=== PATIENT | male | born 1965 | race American Indian/Alaskan Native ===

== ENCOUNTER 2018-03-25 21:17 | Inpatient (IN) | payer MEDICARE ==
[2018-03-25] MEDS ORDERED: ASPIRIN PO ONE (22:15)
[2018-03-25 22:57] LABS: Hematocrit 41.7 % (35.5-45.6); Hemoglobin 14.6 gm/dl (11.8-15.2); Mean Corpuscular HGB Conc 35 % (32-34); Mean Corpuscular Volume 86 fl (84-94); Platelet Count 232 K/mm3 (140-440); Red Blood Count 4.87 M/mm3 (3.65-5.03); Red Cell Distribution Width 14.1 % (13.2-15.2)
[2018-03-25 23:03] LABS: Basophils # (Auto) 0.1 K/mm3 (0.0-0.1); Eosinophils % (Auto) 0.3 % (0.0-4.3); Lymphocytes # (Auto) 2.4 K/mm3 (1.2-5.4); Lymphocytes % (Auto) 42.1 % (13.4-35.0); Monocytes # (Auto) 0.5 K/mm3 (0.0-0.8)
[2018-03-25 23:05] LABS: Basophils % (Auto) 1.6 % (0.0-1.8)
[2018-03-25 23:15] LABS: BUN/Creatinine Ratio 7; Blood Urea Nitrogen 8 mg/dL (9-20); Hemolysis Index 17
--- NOTE | 2018-03-25 23:24 | XRay Report ---
FINAL REPORT PROCEDURE: XR CHEST ROUTINE 2V TECHNIQUE: PA and lateral chest x-ray HISTORY: productive cough, dk green sputum COMPARISON: No prior studies are available for comparison. FINDINGS: Heart size upper normal. Pulmonary vasculature is not distended. Linear band of increased density see n right midlung field laterally suggesting a parenchymal band of atelectasis or scarring. Small patch y alveolar density seen right infrahilar region. Lungs otherwise are clear. No effusions are identifi ed. No acute bony abnormalities are seen. IMPRESSION: Minimal patchy alveolar densities seen in the right infrahilar region suggesting a small amount of at electasis or subsegmental infiltrate. Lungs otherwise are clear. Linear band of atelectasis or scarring right midlung field. Heart size upper normal. No other abnormalities are seen.
--- NOTE | 2018-03-26 01:19 | Emergency Department Report ---
ED Chest Pain HPI - General Chief Complaint: Chest Pain Stated Complaint: HIGH BP/FLU SYMPTOMS Time Seen by Provider: 03/26/18 01:14 Source: patient Mode of arrival: Ambulatory Limitations: No Limitations - History of Present Illness Initial Comments: Patient is a 2-year-old male presents meningeal complaints of chest pain 12 hours and cough and fever 10 days. Patient states she's had 3 MIs in the past. Patient states his chest pain is a sharp chest pain is intermittent chest radiating to his left shoulder. Patient states the pain is better with rest and worse with exertion. Patient states that he is taking [id number] medications for his cough and fever with no relief. Patient states he is having a productive cough with green sputum. Patient states he has multiple sick contacts. 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 MD Complaint: chest pain -: Sudden Onset: during rest Pain Location: substernal, left chest Pain Radiation: LUE Severity scale (0 -10): 6 Quality: heaviness, sharp Consistency: constant Improves With: rest Worsens With: exertion Context: recent illness re: dyspnea. denies: nausea, vomting, diaphoresis, sense of impending doom Other Symptoms: cough, fever. denies: syncope, rash, acid taste in mouth, leg swelling, palpitations, burping Aspirin use within the Past 7 Days: (1) Yes - Related Data On Oral Contraceptives: No Allergies Allergy/AdvReac Type Severity Reaction Status Date / Time ibuprofen Allergy Vomiting Verified 03/25/18 22:02 latex Allergy Anaphylaxis Verified 03/25/18 22:02 Heart Score - HEART Score History: Moderately suspicious EKG: Non-specific Age: 45-65 Risk factors: > 3 risk factors or hx of atherosclerotic disease Troponin: < normal limit HEART Score: 5 ED Review of Systems ROS: Stated complaint: HIGH BP/FLU SYMPTOMS Other details as noted in HPI Constitutional: chills, fever Eyes: denies: eye pain, eye discharge, vision change ENT: denies: ear pain, throat pain Respiratory: cough, shortness of breath. denies: wheezing Cardiovascular: chest pain. denies: palpitations Endocrine: no symptoms reported Gastrointestinal: denies: abdominal pain, nausea, diarrhea Genitourinary: denies: urgency, dysuria Musculoskeletal: denies: back pain, joint swelling, arthralgia Skin: denies: rash, lesions Neurological: denies: headache, weakness, paresthesias Psychiatric: denies: anxiety, depression Hematological/Lymphatic: denies: easy bleeding, easy bruising ED Past Medical Hx - Past Medical History Previous Medical History?: Yes Hx Hypertension: Yes Hx Heart Attack/AMI: Yes ([place] x3-recent, 11/2016; TIA x3, recent 2007) - Surgical History Past Surgical History?: No - Family History Family history: no significant - Social History Smoking Status: Never Smoker Substance Use Type: Alcohol ED Physical Exam - General Limitations: No Limitations General appearance: alert, in no apparent distress - Head Head exam: Present: atraumatic, normocephalic - Eye Eye exam: Present: normal appearance, PERRL Pupils: Present: normal accommodation - ENT ENT exam: Present: mucous membranes dry - Neck Neck exam: Present: normal inspection - Respiratory Respiratory exam: Present: normal lung sounds bilaterally. Absent: respiratory distress - Cardiovascular Cardiovascular Exam: Present: regular rate, normal rhythm. Absent: systolic murmur, diastolic murmur, rubs, gallop - GI/Abdominal GI/Abdominal exam: Present: soft, normal bowel sounds - Rectal Rectal exam: Present: deferred - Extremities Exam Extremities exam: Present: normal inspection - Back Exam Back exam: Present: normal inspection - Neurological Exam Neurological exam: Present: alert, oriented X3 - Psychiatric Psychiatric exam: Present: normal affect, normal mood - Skin Skin exam: Present: warm, dry, intact, normal color. Absent: rash ED Course Vital Signs 03/25/18 03/25/18 03/26/18 21:20 22:04 01:09 Temperature 98.7 F 98.7 F Pulse Rate 129 H 129 H 102 H Respiratory 24 24 16 Rate Blood Pressure 185/111 185/111 O2 Sat by Pulse 99 98 99 Oximetry 03/26/18 03/26/18 03/26/18 01:16 01:30 01:46 Temperature Pulse Rate 107 H 106 H 106 H Respiratory 15 15 17 Rate Blood Pressure 173/111 173/111 173/111 O2 Sat by Pulse 100 99 Oximetry 03/26/18 03/26/18 03/26/18 02:00 02:16 02:30 Temperature Pulse Rate 104 H 99 H 103 H Respiratory 16 13 22 Rate Blood Pressure 147/101 147/101 147/101 O2 Sat by Pulse 94 99 97 Oximetry 0103/26/18 03/26/18 02:46 03:00 03:16 Temperature Pulse Rate 94 H 97 H 94 H Respiratory 16 14 16 Rate Blood Pressure 147/101 155/113 155/113 O2 Sat by Pulse 99 98 Oximetry 03/26/18 03/26/18 03/26/18 03:30 03:46 04:00 Temperature Pulse Rate 95 H 91 H 90 Respiratory 19 14 20 Rate Blood Pressure 155/113 155/113 176/108 O2 Sat by Pulse 98 98 93 Oximetry 03/26/18 03/26/18 03/26/18 04:16 04:30 04:46 Temperature Pulse Rate 100 H 99 H 95 H Respiratory 16 17 12 Rate Blood Pressure 176/108 176/108 176/108 O2 Sat by Pulse 98 98 97 Oximetry 03/26/18 03/26/18 05:00 05:16 Temperature Pulse Rate 99 H 95 H Respiratory 20 18 Rate Blood Pressure 176/108 177/106 O2 Sat by Pulse 96 96 Oximetry - Reevaluation(s) Reevaluation #1: Coastal results. Discussed plan of care with patient. Patient agrees with plan of care and admission. Patient to be admitted to the hospitalist service. 03/26/18 01:57 - Consultations Consultation #1: Hospitalist consult for admission. Hospitalist to admit patient and assume care of patient. 03/26/18 01:57 HAILEY score - Hailey Score Age > 65: (0) No Aspirin use within the Past 7 Days: (1) Yes 3 or more CAD Risk Factors: (1) Yes 2 or more Angina events in past 24 hrs: (1) Yes Known CAD with more than 50% Stenosis: (0) No Elevated Cardiac Markers: (0) No ST Deviation Greater than 0.5mm: (0) No HAILEY Score: 3 ED Medical Decision Making - Lab Data Result diagrams: 03/25/18 22:37 03/25/18 22:37 - EKG Data -: EKG Interpreted by Me EKG shows normal: sinus rhythm, axis, intervals, QRS complexes, ST-T waves Rate: tachycardia - Radiology Data Radiology results: report reviewed, image reviewed FINAL REPORT PROCEDURE: XR CHEST ROUTINE 2V TECHNIQUE: PA and lateral chest x-ray HISTORY: productive cough, dk green sputum COMPARISON: No prior studies are available for comparison. FINDINGS: Heart size upper normal. Pulmonary vasculature is not distended. Linear band of increased density seen right midlung field laterally suggesting a parenchymal band of atelectasis or scarring. Small patchy alveolar density seen right infrahilar region. Lungs otherwise are clear. No effusions are identified. No acute bony abnormalities are seen. IMPRESSION: Minimal patchy alveolar densities seen in the right infrahilar region suggesting a small amount of atelectasis or subsegmental infiltrate. Lungs otherwise are clear. Linear band of atelectasis or scarring right midlung field. Heart size upper normal. No other abnormalities are seen. Transcribed By: SEBASTIÁN Dictated By: ARGENIS HILARIO MD Electronically Authenticated By: ARGENIS HILARIO MD Signed Date/Time: 03/25/18 0119 - Medical Decision Making Patient is a 52-year-old male is presents to ER with complaints of cough, fever and chest pain. Cough and fever. He secondary to an upper respiratory infection that is now bronchitis. Patient be admitted to the hospitalist service. Patient admitted for the patient's chest pain rule out ACS. Patient's initial laboratory results are unremarkable. Patient's EKG is nonspecific. Patient's chest x-ray is essentially negative except for possible atelectasis versus subsegmental effusion. Influenza Negative. - Differential Diagnosis chest pain. ACS. Bronchitis. Pneumonia. flu Critical Care Time: Yes Critical care attestation.: If time is entered above; I have spent that time in minutes in the direct care of this critically ill patient, excluding procedure time. Critical Care Time: 35 minutes ED Disposition Clinical Impression: Cough, Bronchitis, Tachycardia Fever Qualifiers: Fever type: unspecified Qualified Code(s): R50.9 - Fever, unspecified Chest pain Qualifiers: Chest pain type: unspecified Qualified Code(s): R07.9 - Chest pain, unspecified Hypertension Qualifiers: Hypertension type: essential hypertension Qualified Code(s): I10 - Essential (primary) hypertension Disposition: OP ADMIT IP TO THIS HOSP Is pt being admited?: Yes Does the pt Need Aspirin: No Condition: Critical Time of Disposition: 01:59
[2018-03-26] MEDS ORDERED: SOLU-Medrol IV ONE (01:59)
[2018-03-26] MEDS ORDERED: ROCEPHIN/NS 1 GM/50 ML 1 GM/50 ML BAG IV ONE (02:15)
[2018-03-26] MEDS ORDERED: SODIUM CHLORIDE FLUSH SYRINGE 10 ML IV PRN (02:36)
[2018-03-26] MEDS ORDERED: ZOFRAN IV PRN (02:36)
[2018-03-26] MEDS ORDERED: TYLENOL PO PRN (02:36)
--- NOTE | 2018-03-26 02:39 | History and Physical Report ---
History of Present Illness Date of examination: 03/26/18 History of present illness: 52-year-old man with a history of hypertension, coronary artery disease, TiA comes emergency room with complaint of chest pain. Pain is in the left chest which she describes as sharp pain, constant, radiating to the left shoulder, intensity 7/10, relieved with 2 nitroglycerin. Admits to nausea, shortness of breath, palpitation, no diaphoresis. He said cough productive of green phlegm and shortness of breath 10 days. He's been taking Divya-[place] plus every 6 hours for the last 10 days Review of systems Constitutional: no weight loss, chills, fever Ears, eyes, nose, mouth and throat: no nasal congestion, no nasal discharge, no sinus pressure, no vision change, no red eye. Neck: No neck pain or rigidity. Cardiovascular: + palpitations, +chest pain Respiratory: +cough, shortness of breath Gastrointestinal: no hematochezia, abdominal pain Genitourinary : no frequency , no hematuria Musculoskeletal: no joint swelling or muscle ache Integumentary: no rash, no pruritis Neurological: no parathesias, no focal weakness Endocrine: no cold or heat intolerance, no polyuria or polydipsia Hematologic/Lymphatic: no easy bruising, no easy bleeding, no gland swelling Allergic/Immunologic: no urticaria, no angioedema. PAST MEDICAL HISTORY: hypertension, coronary artery disease, TiA PAST SURGICAL HISTORY: Back surgery, knee, left shoulder SOCIAL HISTORY: Denies alcohol, drugs, tobacco FAMILY HISTORY: Hypertension Medications and Allergies Allergies Allergy/AdvReac Type Severity Reaction Status Date / Time ibuprofen Allergy Vomiting Verified 03/25/18 22:02 latex Allergy Anaphylaxis Verified 03/25/18 22:02 Active Meds: Active Medications Acetaminophen (Tylenol) 650 mg PO Q4H PRN PRN Reason: Pain MILD(1-3)/Fever >100.5/GIBSON Enoxaparin Sodium (Lovenox) 30 mg SUB-Q QDAY NATI Ceftriaxone Sodium (Rocephin/Ns 1 Gm/50 Ml) 1 gm in 50 mls @ 100 mls/hr IV ONCE ONE; Protocol Stop: 03/26/18 02:44 Methylprednisolone Sodium Succinate (Solu-Medrol) 60 mg IV Q8HR NATI Morphine Sulfate (Morphine) 2 mg IV Q4H PRN PRN Reason: Pain, Moderate (4-6) Ondansetron HCl (Zofran) 4 mg IV Q8H PRN PRN Reason: Nausea And Vomiting Sodium Chloride (Sodium Chloride Flush Syringe 10 Ml) 10 ml IV BID NATI Sodium Chloride (Sodium Chloride Flush Syringe 10 Ml) 10 ml IV PRN PRN PRN Reason: LINE FLUSH Exam - Physical Exam Narrative exam: General Apperance: The patient lying in bed, breathing comfortable HEENT: Normocephalic, atraumatic. Pupils equally round and reactive to light, EOMI, no sclericterus or JVD or thyromegaly or nodule. , no carotid bruit, mucous membranes moist, no exudate or erythema Heart: S1-S2, regular is rhythm Lungs: Clear to auscultation bilaterally, breathing comfortable Abdomen: Positive bowel sounds, soft, nontender, nondistended, no organomegaly Extremities: No edema cyanosis clubbing Skin: no rash, nodule, warm and dry Neuro: cranial nerves 2-12 intact, speech is fluent, motor/sensory intact - Constitutional Vitals: Temp Pulse Resp BP Pulse Ox 98.7 F 104 H 16 147/101 94 03/25/18 22:04 03/26/18 02:00 03/26/18 02:00 03/26/18 02:00 03/26/18 02:00 Results - Labs CBC & Chem 7: 03/25/18 22:37 03/25/18 22:37 Labs: Abnormal lab results 03/25/18 03/25/18 Range/Units 22:37 22:37 MCHC 35 H (32-34) % Lymph % (Auto) 42.1 H (13.4-35.0) % Sevier % (Auto) 8.0 H (0.0-7.3) % BUN 8 L (9-20) mg/dL Glucose 108 H (75-100) mg/dL - Imaging and Cardiology EKG: image reviewed Chest x-ray: image reviewed Assessment and Plan Assessment Unstable angina Bronchitis, acute Coronary artery disease Hypertension uncontrolled History of TIA Plan Admit to medicine Check cardiac enzymes, stress test Start IV steroids, nebulizer treatment, IV morphine Continue appropriate outpatient medications DVT prophylaxis, IV morphine
[2018-03-26] MEDS ORDERED: MORPHINE ONE (06:02)
[2018-03-26] MEDS ORDERED: ZOFRAN ONE (06:02)
[2018-03-26] MEDS: MORPHINE IV PRN ×3 (06:07→19:09)
[2018-03-26] MEDS ORDERED: APRESOLINE IV PRN (08:06)
[2018-03-26] MEDS ORDERED: LEXISCAN IV ONE ×2 (09:38→09:47)
[2018-03-26] MEDS: HCTZ PO SCH (10:58)
[2018-03-26] MEDS: SOLU-Medrol IV SCH ×2 (11:05→18:50)
[2018-03-26] MEDS: LOVENOX SUB-Q SCH (11:07)
[2018-03-26] MEDS: ALUM-MAG HYDROX-SIMETH 200-200-20MG/5ML PO PRN ×2 (14:10→22:25)
[2018-03-26] MEDS ORDERED: NON-FORMULARY (Clonidine 0.1 MG) PO PRN (16:54)
[2018-03-26] MEDS ORDERED: TORADOL PO PRN (16:54)
[2018-03-26] MEDS ORDERED: PHENERGAN PO PRN (16:54)
[2018-03-26] MEDS ORDERED: OXYCODONE HCL 15 MG PO PRN (16:54)
--- NOTE | 2018-03-26 16:56 | Event Note ---
Date: 03/26/18 Patient seen and examined, continue home meds. Await normalization of BP
[2018-03-26] MEDS ORDERED: NON-FORMULARY (Lipitor 20 MG) PO SCH (17:00)
[2018-03-26] MEDS ORDERED: ROXICODONE PO PRN (17:58)
[2018-03-26] MEDS ORDERED: HCTZ PO SCH (18:00)
[2018-03-26] MEDS ORDERED: CATAPRES PO PRN (18:03)
--- NOTE | 2018-03-26 18:38 | Treadmill Report ---
INDICATION: Chest pain. ORDERING PHYSICIAN: Afshan Yepez MD FINDINGS: There is no scintigraphic evidence of myocardial ischemia. There is a mostly fixed inferior wall defect that is small and that is consistent with a diaphragmatic attenuation. Gated wall imaging reveals an ejection fraction of 64% with normal wall motion and wall thickening. CONCLUSION: 1. Normal perfusion scan with no evidence of scintigraphic ischemia. 2. Normal left ventricular size and systolic function. JOB# [id number] JOHANA/SHARI
[2018-03-26] MEDS: SODIUM CHLORIDE FLUSH SYRINGE 10 ML IV SCH ×2 (19:15→22:24)
[2018-03-26] MEDS ORDERED: OXYCODONE 30 MG PO SCH (22:00)
[2018-03-26] MEDS: ROXICODONE PO SCH (22:23)
[2018-03-26] MEDS: ROBAXIN PO SCH (22:23)
[2018-03-27] MEDS: SOLU-Medrol IV SCH (02:45)
[2018-03-27] MEDS: ALUM-MAG HYDROX-SIMETH 200-200-20MG/5ML PO PRN (03:43)
[2018-03-27 06:13] LABS: Basophils % (Auto) 0.1 % (0.0-1.8); Hematocrit 41.2 % (35.5-45.6); Hemoglobin 13.6 gm/dl (11.8-15.2); Lymphocytes # (Auto) 1.9 K/mm3 (1.2-5.4); Lymphocytes % (Auto) 13.3 % (13.4-35.0); Mean Corpuscular HGB Conc 33 % (32-34); Mean Corpuscular Volume 88 fl (84-94); Monocytes # (Auto) 0.8 K/mm3 (0.0-0.8); Monocytes % (Auto) 5.9 % (0.0-7.3); Platelet Count 246 K/mm3 (140-440); Red Cell Distribution Width 14.4 % (13.2-15.2)
[2018-03-27 06:37] LABS: BUN/Creatinine Ratio 14; Blood Urea Nitrogen 14 mg/dL (9-20); Calcium 9.3 mg/dL (8.4-10.2); Hemolysis Index 8
--- NOTE | 2018-03-27 09:51 | Discharge Summary ---
Providers - Providers Date of Admission: 03/26/18 02:36 Attending physician: TARA WHITNEY MD Primary care physician: [facility] Hospitalization Reason for admission: chest pain Condition: Stable Hospital course: 52-year-old man with a history of hypertension, coronary artery disease, TiA comes emergency room with complaint of chest pain. Pain is in the left chest which he describes as sharp pain, constant, radiating to the left shoulder, intensity 7/10, relieved with 2 nitroglycerin. Admits to nausea, shortness of breath, palpitation, no diaphoresis. He said cough productive of green phlegm and shortness of breath 10 days. He's been taking Divya-[place] plus every 6 hours for the last 10 days. Patient underwent stress test with resolution of symptoms stress test was negative. Blood pressure was controlled. Patient was given counseling on compliance with medication. He is stable for discharge Atypical chest pain likely secondary to costochondritis Bronchitis, acute Coronary artery disease GERD Hypertension uncontrolled History of TIA Disposition: TO HOME OR SELFCARE Time spent for discharge: 35 mins Core Measure Documentation - Palliative Care Palliative Care/ Comfort Measures: Not Applicable - Core Measures Any of the following diagnoses?: none - VTE Discharge Requirements Deep Vein Thrombosis/Pulmonary Embolism Present on Admission: No Exam - Physical Exam Narrative exam: VITAL SIGNS: Reviewed. GENERAL: The patient appeared well nourished and normally developed. Vital signs as documented. HEAD: No signs of head trauma. EYES: Pupils are equal. Extraocular motions intact. EARS: Hearing grossly intact. MOUTH: Oropharynx is normal. NECK: No adenopathy, no JVD. CHEST: Chest with clear breath sounds bilaterally. No wheezes, rales, or rhonchi. CARDIAC: Regular rate and rhythm. S1 and S2, without murmurs, gallops, or rubs. VASCULAR: No Edema. Peripheral pulses normal and equal in all extremities. ABDOMEN: Soft, without detectable tenderness. No sign of distention. No rebound or guarding, and no masses palpated. Bowel Sounds normal. MUSCULOSKELETAL: Good range of motion of all major joints. Extremities without clubbing, cyanosis or edema. NEUROLOGIC EXAM: Alert and oriented x 3. No focal sensory or strength deficits. Speech normal. Follows commands. PSYCHIATRIC: Mood normal. SKIN: No rash or lesions. - Constitutional Vitals: Temp Pulse Resp BP Pulse Ox 98.0 F 103 H 18 152/94 100 01/12/19 09:12 03/27/18 09:13 03/27/18 09:13 03/27/18 09:13 03/27/18 09:13 Plan Activity: advance as tolerated, fall precautions Diet: low fat Special Instructions: record daily BP diary Follow up with: PRIMARY CARE, [Primary Care Provider] - 3-5 Days Prescriptions: Amoxicillin/Potassium Clav [Augmentin 500-125 Tablet] 1 each PO BID #6 tablet cloNIDine 0.1 mg PO BID PRN #30 PRN Reason: Hypertension Fluticasone [Flonase] 1 spray NS QDAY #1 bottle Ketorolac [Toradol] 30 mg PO Q6H PRN #30 tablet PRN Reason: Pain Lipitor 20 mg PO DAILY #30 Losartan/Hydrochlorothiazide [Hyzaar 100-25 TAB] 1 tab PO QDAY #30 tablet Metoprolol Succinate [Toprol Xl] 200 mg PO QAM #30 tab.er.24h Oxycodone HCl [Roxicodone TAB] 15 mg PO Q6H PRN #14 tablet PRN Reason: Pain Prednisone [predniSONE 5 mg (6-Day Pack, 21 Tabs)] 5 mg PO .TAPER #1 tab.ds.pk Promethazine [Phenergan TAB] 25 mg PO Q6HR PRN #30 tablet PRN Reason: Nausea
[2018-03-27] MEDS ORDERED: HCTZ PO SCH (10:00)
[2018-03-27] MEDS ORDERED: COZAAR PO SCH (10:00)
[2018-03-27] MEDS: TOPROL XL PO SCH ×3 (10:00→10:46)
[2018-03-27] MEDS ORDERED: NON-FORMULARY (Naloxegol Oxalate [Movantik] 25 MG) PO SCH (10:00)
[2018-03-27] MEDS ORDERED: NON-FORMULARY (Losartan/Hydrochlorothiazide [Hyzaar 100-25 Tab] 1 TAB) PO SCH (10:00)
[2018-03-27] MEDS ORDERED: METOPROLOL SUCCINATE 200 MG PO SCH (10:00)
[2018-03-27] MEDS: LOVENOX SUB-Q SCH (10:37)
[2018-03-27] MEDS: HCTZ PO SCH ×2 (10:37→11:01)
[2018-03-27] MEDS: ROBAXIN PO SCH ×2 (10:38→11:00)
[2018-03-27] MEDS: ROXICODONE PO SCH ×2 (10:39→10:44)
[2018-03-27] MEDS: SODIUM CHLORIDE FLUSH SYRINGE 10 ML IV SCH ×2 (10:41→10:46)
[2018-03-27] MEDS ORDERED: SOLU-Medrol IV SCH (11:00)
[2018-03-27 12:26] VITALS: BP 156/102
== END 2018-03-27 17:08 | disposition home or self-care (01) | DRG 202 ==
LOC: ED 21:17 → 4A 03-26 02:36
PROVIDERS: ADMIT Internal Medicine; ATTEND Internal Medicine
DX: J20.9 Acute bronchitis, unspecified (principal); I25.110 Atherosclerotic heart disease of native coronary artery with unstable angina pectoris; M94.0 Chondrocostal junction syndrome [Tietze]; I25.2 Old myocardial infarction; I10 Essential (primary) hypertension; K21.9 Gastro-esophageal reflux disease without esophagitis; Z88.8 Allergy status to other drugs, medicaments and biological substances; Z86.73 Personal history of transient ischemic attack (TIA), and cerebral infarction without residual deficits; Z82.49 Family history of ischemic heart disease and other diseases of the circulatory system; Z91.040 Latex allergy status
CPT/HCPCS: 36415; 71046; 78452; 80048; 84484; 85025; 87400; 93005; 93010; 93017; 96365; 96366; 96375; G0378; A9270-GY; A9502; J0360; J0696; J1650; J2270; J2405; J2785; J2920; J2930